=== PATIENT | female | born 1965 | race Caucasian/White ===

== ENCOUNTER 2021-08-20 17:53 | Observation (INO) ==
[2021-08-20] MEDS ORDERED: Ondansetron ODT 4 MG TAB.RAPDIS SL PRN (21:35)
[2021-08-20] MEDS ORDERED: Melatonin 3 MG TABLET PO PRN (21:35)
[2021-08-20] MEDS ORDERED: Naloxone 0.4 MG/ML INJ IVP PRN (21:35)
[2021-08-20 22:44] LABS: Acetaminophen < 10 mcg/mL (10-20); Salicylate < 2.5 mg/dL (15.0-30.0)
[2021-08-20] MEDS ORDERED: Gadolinium Contrast Agent (WT Based) IV PRN (22:53)
[2021-08-21] MEDS ORDERED: Cefepime HCl 1,000 MG in 0.9 % Sodium Chloride 10 ML IVP SCH
[2021-08-21] MEDS: Cefepime HCl 1,000 MG in 0.9 % Sodium Chloride Mini Bag 100 ML IVPB SCH ×2 (00:06→08:59)
[2021-08-21 00:20] LABS: Amphetamine Screen,Urine Negative ng/mL (Cutoff=1000); Barbiturate Screen,Urine Negative ng/mL (Cutoff=200); Benzodiazepines Screen,Urine Negative ng/mL (Cutoff=200); Cannabinoid Screen,Urine Negative ng/mL (Cutoff = 50); Cocaine Screen,Urine Negative ng/mL (Cutoff= 300); Opiate Screen,Urine Negative ng/mL (Cutoff=300); Phencyclidine Screen,Urine Negative ng/mL (Cutoff=25)
[2021-08-21 00:41] LABS: Basophils % 0.8 %; Hematocrit 34.3 % (35.3-44.9); Hemoglobin 11.1 g/dL (11.5-15.4); Immature Granulocytes % 0.2 % (0-4); Lymphocytes # 1.5 K/mcL (0.6-4.6); Lymphocytes % 28.2 %; Mean Corpuscular HGB Conc 32.4 g/dL (31.6-35.5); Mean Corpuscular Hemoglobin 32.1 pg (28.0-33.3); Mean Corpuscular Volume 99.1 fL (83.0-100.0); Mean Platelet Volume 10.8 fL (9.4-12.4); Monocytes % 19.1 %; Neutrophils # 2.7 K/mcL (1.6-8.9); Platelet Count 176 K/mcL (140-400); Red Blood Count 3.46 M/mcL (3.82-4.97); Red Cell Distribution Width 15.3 % (11.5-14.5); Segmented Neutrophils % 51.7 %; White Blood Count 5.2 K/mcL (4.3-11.1)
[2021-08-21 00:59] LABS: Alanine Aminotransferase 11 Units/L (7-52); Albumin 3.2 g/dL (3.5-5.7); Albumin/Globulin Ratio 1.3 (1.1-2.2); Alkaline Phosphatase 51 Units/L (34-104); Aspartate Amino Transferase 27 Units/L (13-39); BUN/Creatinine Ratio 17 (6-26); Bilirubin,Indirect 0.3 mg/dL (0.0-1.0); Bilirubin,Total 0.3 mg/dL (0.3-1.0); Blood Urea Nitrogen 11 mg/dL (6-20); Calcium 7.4 mg/dL (8.6-10.3); Carbon Dioxide 17 mEq/L (23-29); Chloride 112 mEq/L (98-107); Globulin 2.5 g/dL (2.4-3.5); Glucose 81 mg/dL (70-105); Osmolality,Calculated 282 (280-300); Potassium 3.7 mEq/L (3.5-5.1); Sodium 137 mEq/L (136-145); Total Protein 5.7 g/dL (6.4-8.9); eGFR For African Americans > 60 (> 60); eGFR For Non-African Americans > 60 (> 60)
[2021-08-21] MEDS ORDERED: Ipratropium 1 PUFF INHALER IH PRN (08:28)
[2021-08-21] MEDS ORDERED: GADOBUTROL 30 MMOL/30 ML VIAL IVP ONE (12:55)
[2021-08-21] MEDS: metroNIDAZOLE 500 MG TABLET PO SCH ×2 (17:11→22:27)
[2021-08-21] MEDS: Doxycycline 100 MG CAPSULE PO SCH (22:27)
[2021-08-22] MEDS ORDERED: *HR* Enoxaparin 40 MG/0.4 ML SYRINGE SQ SCH (06:00)
[2021-08-22] MEDS ORDERED: Letrozole 2.5 MG TABLET PO SCH (09:00)
[2021-08-22] MEDS ORDERED: Ringers Solution, Lactated 1,000 ML IVC SCH (10:00)
[2021-08-22] MEDS: metroNIDAZOLE 500 MG TABLET PO SCH ×2 (10:02→14:58)
[2021-08-22] MEDS: Doxycycline 100 MG CAPSULE PO SCH (10:02)
[2021-08-22 11:24] VITALS: BP 101/54; PULSE 90; TEMP 98.4; O2SAT 99
== END 2021-08-22 17:20 | disposition home health service (06) ==
LOC: 3NENU → SUATTDRO 20:48
PROVIDERS: ADMIT Internal Medicine; ATTEND Student in an Organized Health Care Education/Training Program